=== PATIENT | female | born 1955 | race Caucasian/White ===

== ENCOUNTER 2022-12-02 11:03 | Emergency (ER) | payer OTHER, SELFPAY ==
--- NOTE | ~2022-12-02 | XR_ITS ---
EXAMINATION: XR finger 3rd RT min 2V DATE: 12/02/2022 11:27 INDICATION: Right hand third digit hyperextension injury and pain. TECHNIQUE: 4 views of right hand third digit were obtained. COMPARISON: None. FINDINGS: Bone alignment is normal. 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 There are punctate calcifications adjacent to the third proximal and distal interpha langeal joints. IMPRESSION: 1. Punctate calcifications adjacent to the third proximal and distal interphalangeal joints, which ma y be acute avulsion fractures or chronic findings. Reviewed, dictated and finalized at location A. IMPRESSION: 1. Punctate calcifications adjacent to the third proximal and distal interphala ngeal joints, which may be acute avulsion fractures or chronic findings.
--- NOTE | 2022-12-02 11:11 | ED.UPPEXIN ---
HPI - Extremity Injury (Upper) General Chief Complaint: Extremity Injury, Upper Stated Complaint: Right Hand/Finger Injury Time Seen by Provider: 12/02/22 11:43 Source: patient and RN notes reviewed Mode of arrival: ambulatory Limitations: no limitations History of Present Illness HPI narrative: 67-year-old female presents with concern for pain and injury to the 3rd digit of her right hand she reports she was exercising and was getting up off the floor when she injured her finger, she is unable to articulate exactly how she injured her finger. She reports pain at the proximal and mid digit. She reports tenderness. She denies decreased range of motion, strength, sensation. MD complaint: injury to: right and finger Related Data Home Medications Medication Instructions Recorded Confirmed alendronate 70 mg tablet 70 mg PO WEEKLY 12/02/22 12/02/22 bupropion HCl 150 mg 24 hr tablet, 150 mg PO DAILY 12/02/22 12/02/22 extended release bupropion HCl 300 mg 24 hr tablet, 300 mg PO DAILY 12/02/22 12/02/22 extended release hydrochlorothiazide 25 mg tablet 25 mg PO DAILY 12/02/22 12/02/22 methocarbamol 750 mg tablet 750 mg PO BID 12/02/22 12/02/22 sertraline 100 mg tablet 200 mg PO DAILY 12/02/22 12/02/22 simvastatin 40 mg tablet 40 mg PO DAILY 12/02/22 12/02/22 sumatriptan succinate 50 mg tablet 1 mg PO ONCE PRN headache 12/02/22 12/02/22 ziprasidone HCl 40 mg capsule mg PO 12/02/22 ziprasidone HCl 60 mg capsule mg PO 12/02/22 Allergies Allergy/AdvReac Type Severity Reaction Status Date / Time amoxicillin [From Augmentin] AdvReac Nausea and Verified 12/02/22 11:31 Vomiting clavulanic acid AdvReac Nausea and Verified 12/02/22 11:31 [From Augmentin] Vomiting Review of Systems Review of Systems: CONSTITUTIONAL: Denies malaise, chills, sweats, or fever. SKIN: Denies rash or itching, open skin, laceration, abrasion, redness, warmth, swelling. MUSCULOSKELETAL: Reports right finger pain, 3rd digit NEUROLOGIC: Denies numbness, weakness All systems reviewed & are unremarkable except as noted in HPI and below PMFSH Comments At time of signature, agree with nursing past medical, surgical, social and family history. There is no relevant family history pertinent to the presenting complaint Exam Narrative: GENERAL: Well-appearing, well-nourished, and in no acute distress. HEAD: Normocephalic EYES: PERRLA, conjunctivae clear NECK: Supple. CHEST: Speaks in full sentences. No respiratory distress. HEART: Regular rate and rhythm. Normal and equal peripheral pulses. EXTREMITIES: Right hand and digits of hand have normal strength and sensation. 5/5 strength with digit flexion, extension. Range of motion normal. No clubbing, cyanosis, or edema noted. Third digit tenderness. Skin intact. Normal digital cascade with flexion of fingers, median, ulnar and radial nerve intact. Normal sensation of each side of finger. Can perform 'okay' sign, 'cross over finger test of index and middle fingers' and 'thumbs up' sign. No scissoring. Normal thumb opposition. Good capillary refill and radial pulse. Distal capillary refill less than 3 seconds. SKIN: Warn, dry, intact, pink. No rash NEURO: Alert and oriented x3. PSYCH: Normal mood and affect Course Course Emergency Course: Patient is aware of diagnosis, understands and agrees to treatment plan. Anticipatory guidance given. Patient agrees to follow-up as directed and is aware of reasons to seek care at the emergency department. Portions of this record may have been created with voice recognition software Level of Care: Express Care Visit Vital Signs Vital signs: Reviewed. MDM - Extremity Injury (Upper) MDM Narrative Medical decision making narrative: Patients injury and pain is consistent with musculoskeletal etiology. No signs of neurological or vascular compromise on exam. Compartments and tissues are soft without signs of compartment syndrome. Pain is felt appropriate fo
[2022-12-02 11:13] VITALS: BP 106/82; PULSE 71; RESP 16; TEMP 36.6; O2SAT 99
== END 2022-12-02 11:55 | disposition home or self-care (01) ==
PROVIDERS: Emergency Provider Nurse Practitioner; PCP Internal Medicine
DX: S69.91XA Unspecified injury of right wrist, hand and finger(s), initial encounter (principal); X58.XXXA Exposure to other specified factors, initial encounter; E78.00 Pure hypercholesterolemia, unspecified; K21.9 Gastro-esophageal reflux disease without esophagitis; M19.90 Unspecified osteoarthritis, unspecified site; F32.A Depression, unspecified
CPT/HCPCS: 29130; 73140; 99213; G0463